=== PATIENT | male | born 1965 | race American Indian/Alaskan Native ===

== ENCOUNTER 2019-04-11 12:47 | Emergency (ER) | payer OTHER ==
--- NOTE | 2019-04-11 13:04 | PDOC ---
Rapid Medical Evaluation Chief Complaint: Injury Time Seen by Provider: 04/11/19 13:02 Medical Evaluation: Allergies Allergy/AdvReac Type Severity Reaction Status Date / Time No Known Allergies Allergy Verified 04/11/19 13:02 04/11/19 13:03 Pt c/o: tripped yesterday and twisted left ankle, now with pain Pt on brief exam: left lat malleolus with edema and tenderness Pt ordered for: xray of left ankle Pt to proceed to the ED Discharge Disposition - Diagnosis Ankle pain, left Qualifiers: Chronicity: acute Qualified Code(s): M25.572 - Pain in left ankle and joints of left foot - Discharge Dispostion Disposition: HOME Condition at time of disposition: Good - Prescriptions Prescriptions: Ibuprofen 600 mg PO TID #20 tablet - Referrals Referrals: Wes Roberts MD [Primary Care Provider] - - Patient Instructions Printed Discharge Instructions: DI for Ankle Sprain Additional Instructions: Please remove arianna wrap of showering and sleeping Apply ice compress to area for 20 minutes 3 to 4 times daily for 2 more days May follow up with orthopedic as needed Elevate left leg at rest - Post Discharge Activity Work/School Note: Back to Work
[2019-04-11 13:05] VITALS: BP 149/83; PULSE 86; TEMP 97.8; BMI 34.4
--- NOTE | 2019-04-11 13:46 | PDOC ---
History of Present Illness - General Chief Complaint: Injury Stated Complaint: Injury Time Seen by Provider: 04/11/19 13:02 History Source: Patient Exam Limitations: No Limitations - History of Present Illness Initial Comments: 04/11/19 13:41 53 year old male with history of thyroid presents with injury to left ankle yesterday. Patient reports missing a step and externally rotating left ankle. Reports little pain but states pain is worse with weight bearing. Denies numbness or tingling in toes. Occurred: reports: yesterday Severity: Yes: mild Lower Extremity Pain Location: left: ankle Method of Injury: Yes: twisted Modifying Factors: improves with: other (none) Lower Ext. Injury Location - Specific Injury Location Hips: bilateral hip: no evidence of injury Legs: bilateral: normal inspection Knees: bilateral no evidence of injury Ankle: left pain, left swelling Foot: bilateral foot no evidence of injury Extremity Pain Location - Extremity Pain Location Extremity Pain Locations: left: ankle Past History - Travel Traveled outside of the country in the last 30 days: No Close contact w/someone who was outside of country & ill: No - Past Medical History Allergies/Adverse Reactions: Allergies Allergy/AdvReac Type Severity Reaction Status Date / Time No Known Allergies Allergy Verified 04/11/19 13:02 Home Medications: Ambulatory Orders Ibuprofen 600 mg PO TID #20 tablet 04/11/19 COPD: No - Immunization History Immunization Up to Date: Yes - Suicide/Smoking/Psychosocial Hx Smoking History: Never smoked Hx Alcohol Use: No Drug/Substance Use Hx: No Review of Systems - Review of Systems Able to Perform ROS?: Yes Is the patient limited Montenegrin proficient: No Constitutional: No: Chills, Fever HEENTM: No: Nose Pain, Throat Pain, Throat Swelling Respiratory: No: Shortness of Breath, Wheezing Cardiac (ROS): No: Chest Pain, Lightheadedness ABD/GI: No: Poor Appetite, Vomiting, Indigestion Musculoskeletal: Yes: Joint Pain, Joint Swelling. No: Neck Pain Integumentary: No: Erythema Neurological: No: Numbness, Paresthesia *Physical Exam - Vital Signs Last Vital Signs Temp Pulse Resp BP Pulse Ox 97.8 F 86 17 149/83 95 04/11/19 13:02 04/11/19 13:02 04/11/19 13:02 04/11/19 13:02 04/11/19 13:02 - Physical Exam General Appearance: Yes: Nourished, Appropriately Dressed HEENT: positive: Pharynx Normal Neck: positive: Supple. negative: Lymphadenopathy (R), Lymphadenopathy (L) Respiratory/Chest: positive: Lungs Clear, Normal Breath Sounds Cardiovascular: positive: Regular Rhythm, Regular Rate Extremity: positive: Inflammation, Other (+ swelling of left lateral malleoulus , no tenderness at ayala point) Neurologic: positive: Fully Oriented, Alert Medical Decision Making - Medical Decision Making 04/11/19 13:47 53 year old male with history of thyroid presents with injury to left ankle yesterday. Plan: xray of ankle ordered 04/11/19 22:13 xray negative for fracture or dislocation *DC/Admit/Observation/Transfer Diagnosis at time of Disposition: Ankle pain, left Qualifiers: Chronicity: acute Qualified Code(s): M25.572 - Pain in left ankle and joints of left foot - Discharge Dispostion Disposition: HOME Condition at time of disposition: Good Decision to Admit order: No - Prescriptions Prescriptions: Ibuprofen 600 mg PO TID #20 tablet - Referrals Referrals: Wes Roberts MD [Primary Care Provider] - - Patient Instructions Printed Discharge Instructions: DI for Ankle Sprain Additional Instructions: Please remove arianna wrap of showering and sleeping Apply ice compress to area for 20 minutes 3 to 4 times daily for 2 more days May follow up with orthopedic as needed Elevate left leg at rest - Post Discharge Activity Forms/Work/School Notes: Back to Work
== END 2019-04-11 14:26 | disposition home or self-care (01) ==
LOC: JERFT 12:47
DX: M25.572 Pain in left ankle and joints of left foot (principal)
CPT/HCPCS: 73610-TC-LT-FY; 99281-25

== ENCOUNTER 2019-07-24 15:55 | Emergency (ER) | payer OTHER ==
[2019-07-24] MEDS ORDERED: DIPHTH,PERTUSS(ACELL),TET 0.5 ML DISP.SYRIN IM ONE ×2 (16:06→16:16)
[2019-07-24 16:08] VITALS: BP 120/75; PULSE 72; TEMP 98; BMI 35.9
--- NOTE | 2019-07-24 16:08 | PDOC ---
Rapid Medical Evaluation Chief Complaint: Injury Time Seen by Provider: 07/24/19 16:05 Medical Evaluation: Allergies Allergy/AdvReac Type Severity Reaction Status Date / Time No Known Allergies Allergy Verified 04/11/19 13:02 07/24/19 16:07 Patient c/o: lac from a drill used last night, unknown last tdap, FROM of left fingers Patient on brief exam: noted irreg lac to dorsal aspect of left hand in the web of 1st-2nd digit Patient ordered for: tdap Patient to proceed to the ED Discharge Disposition - Diagnosis Hand laceration Qualifiers: Encounter type: initial encounter Foreign body presence: unspecified Laterality : left Qualified Code(s): S61.412A - Laceration without foreign body of left hand, initial encounter - Discharge Dispostion Disposition: HOME Condition at time of disposition: Good - Prescriptions Prescriptions: Cephalexin [Keflex] 500 mg PO Q6H #28 capsule Cephalexin [Keflex] 500 mg PO Q6H #28 capsule - Referrals Referrals: Wes Roberts MD [Primary Care Provider] - - Patient Instructions Printed Discharge Instructions: DI for Laceration Repair Additional Instructions: Keep dressing in place for at least 24 hours after which one can be opened to air. You can gently cleaned wound with mild soap and water after 24 hours to prevent crusting over the suture knots. Please take antibiotics as directed Return for redness, discharge or fever Sutures are removed in 7 days - Post Discharge Activity
--- NOTE | 2019-07-24 16:46 | PDOC ---
History of Present Illness - General Chief Complaint: Injury Stated Complaint: LT. HAND LAC. Time Seen by Provider: 07/24/19 16:05 History Source: Patient - History of Present Illness Timing/Duration: reports: yesterday Location: reports: hands Past History - Past Medical History Allergies/Adverse Reactions: Allergies Allergy/AdvReac Type Severity Reaction Status Date / Time No Known Allergies Allergy Verified 07/24/19 16:08 Home Medications: Ambulatory Orders Ibuprofen 600 mg PO TID #20 tablet 04/11/19 Cephalexin [Keflex] 500 mg PO Q6H #28 capsule 07/24/19 Cephalexin [Keflex] 500 mg PO Q6H #28 capsule 07/24/19 COPD: No - Immunization History Immunization Up to Date: Yes - Psycho Social/Smoking Cessation Hx Smoking History: Never smoked Information on smoking cessation initiated: No Hx Alcohol Use: No Drug/Substance Use Hx: No Review of Systems - Review of Systems Constitutional: No: Chills, Fever Integumentary: No: Erythema *Physical Exam - Vital Signs Last Vital Signs Temp Pulse Resp BP Pulse Ox 98 F 72 19 120/75 99 07/24/19 16:06 07/24/19 16:06 07/24/19 16:06 07/24/19 16:06 07/24/19 16:06 - Physical Exam General Appearance: Yes: Appropriately Dressed. No: Apparent Distress HEENT: positive: Normal Voice Neck: positive: Supple Respiratory/Chest: negative: Respiratory Distress Integumentary: positive: Dry, Warm, Other (jagged superficial laceration to dorsal aspect of L 1st/2nd webspace, sensation and FROMI) Neurologic: positive: Fully Oriented, Alert, Normal Mood/Affect Procedures - Laceration/Wound Repair Left Hand Wound Length: to 2.5 cm Wound's Depth, Shape: superficial, irregular Irrigated w/ Saline: Yes Betadine Prep: Yes Anesthesia: 1% Lidocaine Amount of Anesthetic (ccs): 5 Wound Repaired With: Sutures Suture Size/Type: 4:0, nylon Number of Sutures: 6 Sterile Dressing Applied: Yes (bacitracin, xeroform, 2x2cm, gauze roll) ED Treatment Course - Medications Given in the ED: ED Medications Discontinued Medications Generic Name Dose Route Start Last Admin Trade Name Freq PRN Reason Stop Dose Admin Diphtheria/Tetanus/Acell Pertussis 0.5 ml 07/24/19 16:06 07/24/19 16:22 Boostrix - IM 07/24/19 16:07 0.5 ml .ONCE ONE Administration Medical Decision Making - Medical Decision Making 07/24/19 16:43 53-year-old male, no significant history, here with laceration to L hand after drill he was using ~8pm last night accidentally struck hand. Feels like pain got worse today. No redness, fever or chills. No sensory changes. Needs tetanus. See exam L hand lac -tetanus updated -XR w/ no fb -lac repair -dc w/ abx given mechanism -wound check in 48 hrs Discharge - Discharge Information Problems reviewed: Yes Clinical Impression/Diagnosis: Hand laceration Qualifiers: Encounter type: initial encounter Foreign body presence: unspecified Laterality : left Qualified Code(s): S61.412A - Laceration without foreign body of left hand, initial encounter Condition: Good Disposition: HOME - Additional Discharge Information Prescriptions: Cephalexin [Keflex] 500 mg PO Q6H #28 capsule - Follow up/Referral - Patient Discharge Instructions Patient Printed Discharge Instructions: DI for Laceration Repair Additional Instructions: Keep dressing in place for at least 24 hours after which one can be opened to air. You can gently cleaned wound with mild soap and water after 24 hours to prevent crusting over the suture knots. Please take antibiotics as directed Return for redness, discharge or fever Sutures are removed in 7 days - Post Discharge Activity
== END 2019-07-24 17:39 | disposition home or self-care (01) ==
LOC: JERFT 15:55
PROC: 0HQGXZZ Repair Left Hand Skin, External Approach (ICD-10-PCS; principal; 2019-07-24)
DX: S61.412A Laceration without foreign body of left hand, initial encounter (principal); W29.8XXA Contact with other powered hand tools and household machinery, initial encounter; Y93.9 Activity, unspecified; Y92.9 Unspecified place or not applicable
CPT/HCPCS: 73130-TC-LT-FY; 90715; 99281-25

== ENCOUNTER 2019-09-23 09:53 | Emergency (ER) | payer OTHER ==
[2019-09-23 09:59] VITALS: BP 122/86; PULSE 79; TEMP 98.1; BMI 39.0
[2019-09-23] MEDS ORDERED: KETOROLAC TROMETHAMINE 60 MG/2 ML VIAL IM ONE (11:14)
[2019-09-23] MEDS ORDERED: diazePAM 5 MG TABLET PO ONE (11:14)
[2019-09-23] MEDS ORDERED: CYCLOBENZAPRINE HCL 10 MG TABLET (FP) PO ONE (11:14)
[2019-09-23] MEDS ORDERED: LIDOCAINE 5% TOPICAL PATCH TP ONE (11:16)
[2019-09-23] MEDS ORDERED: KETOROLAC TROMETHAMINE 60 MG/2 ML VIAL ONE (11:16)
--- NOTE | 2019-09-23 11:16 | PDOC ---
History of Present Illness - General Chief Complaint: Back Pain Stated Complaint: LBP Time Seen by Provider: 09/23/19 10:53 History Source: Patient Exam Limitations: No Limitations Past History - Travel Traveled outside of the country in the last 30 days: No Close contact w/someone who was outside of country & ill: No - Past Medical History Allergies/Adverse Reactions: Allergies Allergy/AdvReac Type Severity Reaction Status Date / Time No Known Allergies Allergy Verified 09/23/19 09:56 Home Medications: Ambulatory Orders Ibuprofen 600 mg PO TID #20 tablet 04/11/19 Cephalexin [Keflex] 500 mg PO Q6H #28 capsule 07/24/19 Cephalexin [Keflex] 500 mg PO Q6H #28 capsule 07/24/19 Ibuprofen 800 mg PO TID #30 tablet 09/23/19 Methocarbamol [Robaxin -] 500 mg PO BID #14 tablet 09/23/19 COPD: No Hypercholesterolemia: Yes Seizures: Yes (HYPO) - Immunization History Immunization Up to Date: Yes - Psycho Social/Smoking Cessation Hx Smoking History: Never smoked Have you smoked in the past 12 months: No Information on smoking cessation initiated: No Hx Alcohol Use: No Drug/Substance Use Hx: No Review of Systems - Review of Systems Able to Perform ROS?: Yes Comments:: 09/23/19 11:56 CONSTITUTIONAL: Absent: fever, chills, diaphoresis, generalized weakness, malaise, loss of appetite GASTROINTESTINAL: Absent: abdominal pain, abdominal distension, nausea, vomiting, diarrhea, constipation, melena, hematochezia GENITOURINARY: Absent: dysuria, frequency, urgency, hesitancy, hematuria, flank pain, genital pain MUSCULOSKELETAL: Present: low back pain Absent: arthralgia, joint swelling SKIN: Absent: rash, itching, pallor NEUROLOGIC: Absent: headache, focal weakness or paresthesias, dizziness, unsteady gait, seizure, mental status changes, bladder or bowel incontinence PSYCHIATRIC: Absent: anxiety, depression, suicidal or homicidal ideation, hallucinations. Is the patient limited Venezuelan proficient: No *Physical Exam - Vital Signs Last Vital Signs Temp Pulse Resp BP Pulse Ox 98.1 F 79 18 122/86 96 09/23/19 09:56 09/23/19 09:56 09/23/19 09:56 09/23/19 09:56 09/23/19 09:56 - Physical Exam 09/23/19 11:56 GENERAL: Well developed, well nourished. Awake and alert. No acute distress. NECK: Supple. Full ROM. No lymphadenopathy. MUSCULOSKELETAL Normal range of motion at all joints. No bony deformities or tenderness. No CVA tenderness. EXTREMITIES: No cyanosis. No clubbing. No edema. No calf tenderness. SKIN: Warm and dry. Normal capillary refill. No rashes. No jaundice. NEUROLOGICAL: Alert, awake, appropriate. Cranial nerves 2-12 intact. No deficits to light touch and temperature in face, upper extremities and lower extremities. No motor deficits in the in face, upper extremities and lower extremities. Normoreflexic in the upper and lower extremities. Normal speech. Toes are down-going bilaterally. Gait is normal without ataxia. PSYCHIATRIC: Cooperative. Good eye contact. Appropriate mood and affect. Medical Decision Making - Medical Decision Making 09/23/19 12:06 Patient is a 54-year-old male with no past medical history who presents the ER w ith 3 days of low back pain. He states 3 days ago he was sitting on the toilet when he stood up he had low back pain. He states that the pain is mostly in the middle of his back and worse with movement. He states it hurts to sit. He states he is been taking ibuprofen and Flexeril at home with some relief of his symptoms. Denies fevers, chills, urinary symptoms, saddle anesthesia, bladder or bowel incontinence, numbness and tingling down the extremities, gait changes. A/P: Low back pain -Pt with TTP of the b/l paraspinous muscles, L3-L5, with palpable knot consistent with muscle spasm. Negative straight leg raise testing. No midline tenderness. -No trauma, or fever. No saddle anesthesia or bladder/bowel incontinence. No CVA tenderness. -Pt is neurologically intact on exam with no focal findings. -X-ray obtained, no acute pathology noted. -Toradol given with relief of symptoms -DC home. Ortho follow up given for if symptoms do not resolve. -I discussed the physical exam findings, ancillary test results and final diagnoses with the patient. I answered all of the patient's questions. The patient was satisfied with the care received and felt comfortable with the discharge plan and treatment plan. The Patient agrees to follow up with the primary care physician/specialist within 24-72 hours. Return precautions were given. Discharge - Discharge Information Problems reviewed: Yes Clinical Impression/Diagnosis: Back pain Qualifiers: Back pain location: low back pain Chronicity: acute Back pain laterality: bilateral Sciatica presence: without sciatica Qualified Code(s): M54.5 - Low back pain Condition: Stable Disposition: HOME - Admission No - Additional Discharge Information Prescriptions: Ibuprofen 800 mg PO TID #30 tablet Methocarbamol [Robaxin -] 500 mg PO BID #14 tablet - Follow up/Referral Referrals: Wes Roberts MD [Primary Care Provider] - Arias Little MD [Staff Physician] - - Patient Discharge Instructions Patient Printed Discharge Instructions: DI for Low Back Pain Additional Instructions: You have low back pain due to a muscle spasm. Please take ibuprofen 800 mg 3 times a day not to exceed 3000 mg a day. You were also prescribed Flexeril. Please take this medication every 8 hours for the first day. Then take the medication before you go to bed. Do not drive after taking this medication as it may make you sleepy. You may use warm compresses on your back to help with her symptoms. Please follow-up with your primary care doctor. If your symptoms do not resolve in 3-5 days, follow-up with orthopedics. A referral has been provided for you. Return to the emergency department if you have worsening back pain, bladder or bowel incontinence, numbness and tingling in her legs, changes in the way you walk, or any new or worsening symptoms. - Post Discharge Activity Work/Back to School Note: Back to Work
[2019-09-23] MEDS ORDERED: diazePAM 5 MG TABLET ONE (11:17)
== END 2019-09-23 12:07 | disposition home or self-care (01) ==
LOC: JERFT 09:53
PROC: 3E0233Z Introduction of Anti-inflammatory into Muscle, Percutaneous Approach (ICD-10-PCS; principal; 2019-09-23)
DX: M62.830 Muscle spasm of back (principal); M54.5 Low back pain; E03.9 Hypothyroidism, unspecified; E78.00 Pure hypercholesterolemia, unspecified
CPT/HCPCS: 72100-TC-FY; 99282-25

== ENCOUNTER 2020-09-11 00:29 | Inpatient (IN) | payer OTHER ==
[2020-09-11 00:56] VITALS: BMI 35.9
[2020-09-11] MEDS ORDERED: ACETAMINOPHEN 1000 MG/100 ML VIAL (NON FORMULARY) IVPB ONE (01:12)
[2020-09-11] MEDS ORDERED: NITROGLYCERIN SUBLINGUAL 1/150 0.4 MG TAB SL PRN (01:35)
[2020-09-11 01:41] LABS: BASO % 0.6 % (0-2.0); EOS % 1.7 % (0-4.5); HEMATOCRIT 40.7 % (35.4-49); HEMOGLOBIN 13.5 GM/dL (11.7-16.9); LYMPH % 31.2 % (8-40); MCH 29.9 pg (25.7-33.7); MCHC 33.3 g/dl (32.0-35.9); MEAN CELL VOLUME 89.9 fl (80-96); MONO % 9.4 % (3.8-10.2); NEUT % 57.1 % (42.8-82.8); PLATELET COUNT 171 K/MM3 (134-434); RBC 4.52 M/mm3 (4.00-5.60); RDW 13.7 % (11.9-15.9); WHITE BLOOD COUNT 7.2 K/mm3 (4.0-10.0)
[2020-09-11 01:48] LABS: INR 0.95 (0.83-1.09); PROTHROMBIN TIME (PATIENT) 11.5 SEC (9.7-13.0)
[2020-09-11] MEDS ORDERED: ACETAMINOPHEN INJECTION 100 ML IVPB ONE (01:50)
[2020-09-11 01:51] LABS: ACTIVATED PTT 32.6 SECONDS (25.2-36.5)
[2020-09-11 01:57] LABS: ALBUMIN 3.9 g/dl (3.4-5.0); CALCIUM 9.1 mg/dL (8.5-10.1)
[2020-09-11 02:02] LABS: BILIRUBIN,TOTAL 0.4 mg/dL (0.2-1); TOT PROT 7.4 g/dl (6.4-8.2)
[2020-09-11] MEDS ORDERED: ASPIRIN 81 MG CHEWABLE TABLETS PO ONE (02:12)
[2020-09-11] MEDS ORDERED: ASPIRIN 81 MG CHEWABLE TABLETS ONE ×2 (02:28→11:21)
[2020-09-11] MEDS ORDERED: ENOXAPARIN NA (PORCINE) 80 MG/0.8 ML DISP.SYRIN SQ ONE (02:42)
[2020-09-11] MEDS ORDERED: ENOXAPARIN NA (PORCINE) 120 MG/0.8 ML DISP.SYRIN SQ SCH (03:00)
[2020-09-11 03:13] LABS: POTASSIUM 6.8 mmol/L (3.5-5.1)
[2020-09-11] MEDS ORDERED: ENOXAPARIN NA (PORCINE) 100 MG/1 ML DISP.SYRIN SQ ONE (03:18)
[2020-09-11] MEDS ORDERED: ENOXAPARIN NA (PORCINE) 40 MG/0.4 ML DISP.SYRIN SQ ONE (03:18)
[2020-09-11] MEDS ORDERED: ROSUVASTATIN CA 20 MG TABLET (FP) PO ONE (04:38)
[2020-09-11 07:23] LABS: POTASSIUM 4.4 mmol/L (3.5-5.1)
[2020-09-11] MEDS ORDERED: HEPARIN NA (PORCINE) 5,000 UNITS/ML 1ML VIAL IVPUSH PRN ×2 (07:40)
[2020-09-11] MEDS ORDERED: HEPARIN - 25,000 UNIT in SODIUM CHLORIDE 495 ML IV SCH (07:45)
[2020-09-11] MEDS ORDERED: HEPARIN INFUSION - 25,000 UNITS/500 ML INFUS.BAG IVPB ONE (07:54)
[2020-09-11 09:40] LABS: BASO % 0.8 % (0-2.0); EOS % 1.7 % (0-4.5); HEMATOCRIT 40.5 % (35.4-49); HEMOGLOBIN 13.5 GM/dL (11.7-16.9); LYMPH % 42.1 % (8-40); MCH 30.3 pg (25.7-33.7); MCHC 33.4 g/dl (32.0-35.9); MEAN CELL VOLUME 90.7 fl (80-96); MEAN PLT VOLUME 10.1 fl (7.5-11.1); NEUT % 46.4 % (42.8-82.8); PLATELET COUNT 162 K/MM3 (134-434); RBC 4.47 M/mm3 (4.00-5.60); RDW 13.2 % (11.9-15.9); WHITE BLOOD COUNT 6.6 K/mm3 (4.0-10.0)
[2020-09-11 09:47] LABS: INR 1.04 (0.83-1.09); PROTHROMBIN TIME (PATIENT) 12.8 SEC (9.7-13.0)
[2020-09-11 09:49] LABS: ACTIVATED PTT 54.4 SECONDS (25.2-36.5)
[2020-09-11 09:58] LABS: POTASSIUM 4.2 mmol/L (3.5-5.1)
[2020-09-11] MEDS ORDERED: ASPIRIN 81 MG CHEWABLE TABLETS PO SCH (10:00)
[2020-09-11 10:02] LABS: CALCIUM 9.4 mg/dL (8.5-10.1)
[2020-09-11 10:03] LABS: BLOOD UREA NITROGEN 16.8 mg/dL (7-18)
[2020-09-11 10:04] LABS: CREATININE 0.8 mg/dL (0.55-1.3)
[2020-09-11 10:06] LABS: PHOSPHOROUS 4.1 mg/dL (2.5-4.9)
[2020-09-11 10:07] LABS: BILIRUBIN,TOTAL 0.4 mg/dL (0.2-1)
[2020-09-11 15:13] VITALS: BP 103/54; PULSE 68; TEMP 98.1
[2020-09-12] MEDS ORDERED: ROSUVASTATIN CA 20 MG TABLET (FP) PO SCH (22:00)
== END 2020-09-11 15:30 | disposition short-term general hospital (02) | DRG 282 ==
LOC: JER 00:29 → JERBED 02:31
PROVIDERS: ADMIT Hospitalist; ATTEND Internal Medicine
DX: I21.3 ST elevation (STEMI) myocardial infarction of unspecified site (principal); E03.9 Hypothyroidism, unspecified; E66.9 Obesity, unspecified; Z68.35 Body mass index [BMI] 35.0-35.9, adult; I45.10 Unspecified right bundle-branch block; R73.03 Prediabetes
CPT/HCPCS: 36415; 71045-TC-FY; 80053; 80061; 82550; 82553; 83036; 83721; 83735; 84100; 84132; 84484; 85025; 85610; 85730; 93005; 93010; 93306-TC; 99285-25; C9803; J0131; J1644; U0003